=== PATIENT | male | born 1995 | race Hispanic/Latino ===

== ENCOUNTER 2022-09-05 20:25 | Emergency (ER) | payer SELFPAY ==
[~2022-09-05] VITALS: Ht 165.1 cm; Wt 72.0 kg
[~2022-09-05 20:25] MED LIST: AMOXICILLIN500 MG PO; BENADRYL 50MG C50 MG OR; MEDDOSEPAK OR; MOTRIN800 MG PO; NAPROSYN500 MG PO; NO HOME MEDS; ROBITUSSIN200 MG/10 PO; ZOFRAN4 MG OR; ZPAK PO
[2022-09-05 20:33] VITALS: BP 130/78
[2022-09-05 20:45] VITALS: BP 131/82
[2022-09-05 20:57] LABS: HEMATOCRIT 38.8 % (39.0-50.0); HEMOGLOBIN 13.5 g/dl (14.0-18.0); IMMATURE GRANULOCYTES 0.8 % (0.0-5.0); MEAN CELL VOLUME 83.8 fL CALC (80.0-100.0); MEAN CORPUSCULAR HGB 29.2 pG CALC (26.0-32.0); MEAN CORPUSCULAR HGB CONC 34.8 g/dL CAL (32.0-36.0); NEUT# 12.31 thou/uL (1.82-7.42); RED BLOOD COUNT 4.63 mill/uL (4.70-6.10)
[2022-09-05 21:00] VITALS: BP 130/81
[2022-09-05 21:16] LABS: ALBUMIN 3.9 g/dL (3.2-5.0); ALKALINE PHOSPHATASE 51 u/l (38-126); ANION GAP 12 (6-22 (CALC)); BILIRUBIN, TOTAL 0.7 mg/dL (0.0-1.4); BUN 16 mg/dL (9-20); BUN/CREATININE RATIO 21 (12-20 (CALC)); CARBON DIOXIDE 20 mmol/l (22-30); CHLORIDE 113 mmol/l (95-108); CREATININE 0.8 mg/dL (0.7-1.3); GFR FOR AFR.AMER. > 60 ML/MIN (>=60 (CALC)); GFR OTHER RACES > 60 ML/MIN (>=60 (CALC)); LIPASE 93 u/l (23-300); SGOT/AST 24 u/l (17-59); SODIUM 142 mmol/l (137-146); TOTAL PROTEIN 6.3 g/dL (6.3-8.2)
[2022-09-05 21:30] VITALS: BP 129/83
[2022-09-05 21:45] VITALS: BP 135/84
[2022-09-05] MEDS ORDERED: PROMETHAZINE HY25 M1 PO (21:49)
[2022-09-05] MEDS ORDERED: POT CHLORIDE20 ME2 PO (21:49)
[2022-09-05 22:15] VITALS: BP 121/73
== END 2022-09-05 22:32 | disposition home or self-care (01) | DRG 392 ==
LOC: ED 20:25
PROVIDERS: Family Medicine
DX: A08.4 Viral intestinal infection, unspecified (principal); E87.6 Hypokalemia

== ENCOUNTER 2023-04-22 20:51 | Inpatient (IN) | payer SELFPAY ==
[~2023-04-22] VITALS: Ht 165.1 cm; Wt 71.0 kg
[2023-04-22] VITALS (11 sets, daily range): BP systolic 125–151; BP diastolic 83–97
[~2023-04-22 20:51] MED LIST changes: +POT CHLORIDE20 ME2 PO; +PROMETHAZINE HY25 M1 PO
[2023-04-22 21:40] LABS: BASO% 0.2 % (0-3); IMMATURE GRANULOCYTES 0.8 % (0.0-5.0); LYMPH% 5.1 % (15-41); MEAN CELL VOLUME 82.2 fL CALC (80.0-100.0); MEAN CORPUSCULAR HGB 28.1 pG CALC (26.0-32.0); MEAN CORPUSCULAR HGB CONC 34.2 g/dL CAL (32.0-36.0); MONO% 7.6 % (2-13); NEUT# 17.33 thou/uL (1.82-7.42); NEUT% 86.3 % (42-76); RED BLOOD COUNT 6.9 mill/uL (4.70-6.10); RED CELL DISTRI WIDTH 13.4 % (11.5-15.5)
[2023-04-22 21:43] LABS: HEMATOCRIT 56.7 % (39.0-50.0); HEMOGLOBIN 19.4 g/dl (14.0-18.0)
[2023-04-22 21:56] LABS: ALKALINE PHOSPHATASE 76 u/l (38-126); AMYLASE 180 u/l (30-110); BUN 27 mg/dL (9-20); LIPASE 120 u/l (23-300); SGOT/AST 38 u/l (17-59); SODIUM 143 mmol/l (137-146)
[2023-04-22 22:25] LABS: ALBUMIN > 6.0 g/dL (3.2-5.0); ANION GAP 25 (6-22 (CALC)); BILIRUBIN, TOTAL 2.3 mg/dL (0.2-1.3); BUN/CREATININE RATIO 9 (12-20 (CALC)); CARBON DIOXIDE 29 mmol/l (22-30); CHLORIDE 93 mmol/l (95-108); CREATININE 3.1 mg/dL (0.7-1.3); GFR FOR AFR.AMER. 29 ML/MIN (>=60 (CALC)); GFR OTHER RACES 24 ML/MIN (>=60 (CALC)); POTASSIUM 3.9 mmol/l (3.5-5.1); TOTAL PROTEIN 10.7 g/dL (6.3-8.2)
[2023-04-23] VITALS (11 sets, daily range): BP systolic 107–133; BP diastolic 45–85
[2023-04-23 09:20] LABS: MEAN CELL VOLUME 83.9 fL CALC (80.0-100.0); MEAN CORPUSCULAR HGB 28.2 pG CALC (26.0-32.0); MEAN CORPUSCULAR HGB CONC 33.6 g/dL CAL (32.0-36.0); RED BLOOD COUNT 5.47 mill/uL (4.70-6.10); RED CELL DISTRI WIDTH 13.2 % (11.5-15.5)
[2023-04-23 09:22] LABS: HEMATOCRIT 45.9 % (39.0-50.0); HEMOGLOBIN 15.4 g/dl (14.0-18.0)
[2023-04-23 09:29] LABS: ALKALINE PHOSPHATASE 44 u/l (38-126); BILIRUBIN, TOTAL 1.8 mg/dL (0.2-1.3); BUN 22 mg/dL (9-20); MAGNESIUM 2.2 mg/dL (1.6-2.3); SGOT/AST 23 u/l (17-59); SODIUM 139 mmol/l (137-146)
[2023-04-23 09:52] LABS: ALBUMIN 4.2 g/dL (3.2-5.0); ANION GAP 13 (6-22 (CALC)); BUN/CREATININE RATIO 20 (12-20 (CALC)); CARBON DIOXIDE 23 mmol/l (22-30); CHLORIDE 107 mmol/l (95-108); CREATININE 1.1 mg/dL (0.7-1.3); GFR FOR AFR.AMER. > 60 ML/MIN (>=60 (CALC)); GFR OTHER RACES > 60 ML/MIN (>=60 (CALC)); TOTAL PROTEIN 6.6 g/dL (6.3-8.2)
[2023-04-23 11:41] LABS: URINE BILIRUBIN - DIPSTICK NEGATIVE (NEGATIVE); URINE BLOOD DIPSTICK NEGATIVE (NEGATIVE); URINE COLOR YELLOW; URINE GLUCOSE - DIPSTICK NEGATIVE (NEGATIVE); URINE KETONE TRACE mg/dL (NEGATIVE); URINE LEUK ESTERASE NEGATIVE (NEGATIVE); URINE PROTEIN - DIPSTICK 30 mg/dL (NEG-TRACE); URINE SPECIFIC GRAVITY >=1.030; URINE UROBILINOGEN - DIPSTICK 0.2 E.U./dL (0.2)
[2023-04-23 11:46] LABS: URINE EPITHELIAL CELLS FEW EPI/hpf (0-FEW); URINE MUCUS MODERATE hpf (NONE-FEW); URINE NITRITE - DIPSTICK NEGATIVE (Negative)
== END 2023-04-23 12:39 | disposition home or self-care (01) | DRG 923 ==
LOC: ED 20:51 → ED-I 04-23 00:39 → ED 04-23 00:56 → MS2 04-23 00:57
PROVIDERS: Emergency Medicine; ADMIT Internal Medicine; ATTEND Internal Medicine
DX: T67.8XXA Other effects of heat and light, initial encounter (principal); N17.9 Acute kidney failure, unspecified; E86.0 Dehydration; X30.XXXA Exposure to excessive natural heat, initial encounter; Z20.822 Contact with and (suspected) exposure to COVID-19